=== PATIENT | female | born 1995 | race American Indian/Alaskan Native ===

== ENCOUNTER 2020-03-12 22:13 | Emergency (ER) | payer OTHER ==
[2020-03-12 23:44] VITALS: BP 106/60
[2020-03-13] MEDS ORDERED: HYDROcodone/ACETAMINOPHEN 5-325 MG TAB PO ONE (00:32)
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
[2020-03-13 01:47] LABS: Basophils # (Auto) 0.1 K/mm3 (0.0-0.1); Basophils % (Auto) 0.9 % (0.0-1.8); Eosinophils # (Auto) 0.2 K/mm3 (0.0-0.4); Eosinophils % (Auto) 1.4 % (0.0-4.3); Hematocrit 30.6 % (30.3-42.9); Hemoglobin 11.3 gm/dl (10.1-14.3); Lymphocytes # (Auto) 2.9 K/mm3 (1.2-5.4); Mean Corpuscular HGB Conc 37 % (30-34); Mean Corpuscular Volume 89 fl (79-97); Monocytes # (Auto) 0.6 K/mm3 (0.0-0.8); Platelet Count 168 K/mm3 (140-440); Red Blood Count 3.43 M/mm3 (3.65-5.03); Red Cell Distribution Width 15.3 % (13.2-15.2)
[2020-03-13 01:48] LABS: HCG Qualitative,Urine Negative (Negative)
[2020-03-13 01:50] LABS: Alanine Aminotransferase 7 units/L (7-56); Albumin 3.8 g/dL (3.9-5); Blood Urea Nitrogen 8 mg/dL (7-17); Calcium 9.1 mg/dL (8.4-10.2); Hemolysis Index 20
[2020-03-13 01:51] LABS: BUN/Creatinine Ratio 11
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
== END 2020-03-13 03:44 | disposition home or self-care (01) ==
LOC: ED 22:13
DX: M62.830 Muscle spasm of back (principal); R51 Headache; R32 Unspecified urinary incontinence; Z79.1 Long term (current) use of non-steroidal anti-inflammatories (NSAID); Z79.899 Other long term (current) drug therapy; V49.49XA Driver injured in collision with other motor vehicles in traffic accident, initial encounter; Y93.89 Activity, other specified; Y92.410 Unspecified street and highway as the place of occurrence of the external cause; Y99.8 Other external cause status
CPT/HCPCS: 36415; 74177; 80053; 81025; 85025; 99284; Q9967

== ENCOUNTER 2021-01-09 08:58 | Emergency (ER) | payer MEDICAID, OTHER ==
[2021-01-09] MEDS ORDERED: SODIUM CHLORIDE 0.9% 1000 ML 1,000 ML IV ONE ×2 (09:45→13:10)
[2021-01-09] MEDS ORDERED: ONDANSETRON 4 MG ODT TAB PO ONE (09:45)
[2021-01-09] MEDS ORDERED: MORPHINE 4 MG/1 ML INJ IV ONE ×2 (09:45→10:58)
--- NOTE | 2021-01-09 09:49 | Emergency Department Report ---
ED Abdominal Pain HPI - General Chief Complaint: Abdominal Pain Stated Complaint: ABD PAIN Time Seen by Provider: 01/09/21 09:34 Source: patient Mode of arrival: Ambulatory Limitations: No Limitations - History of Present Illness Initial Comments: Chief complaint: Abdominal pain severe HPI: This 25-year-old healthy female with history of ovarian cysts who presents with severe right lower quadrant pain tonight 10 dull aching. Pain is worse with movement. Pain radiates to the right upper quadrant. Has had poor appetite. She had diarrhea. She denies fever. No history of surgeries in the past. Last menstrual period this month. MD Complaint: abdominal pain -: Gradual, days(s) (2 to 3 days ago) Location: RUQ, RLQ Severity: severe Severity scale (0 -10): 10 Quality: aching, dull Consistency: constant Improves With: nothing Worsens With: movement Associated Symptoms: diarrhea, anorexia - Related Data Previous Rx's Medication Instructions Recorded Last Taken Type Ibuprofen [Motrin 600 MG tab] 600 mg PO Q8H PRN #30 tablet 03/13/20 Unknown Rx Tizanidine HCl 2 mg PO TID PRN #21 tablet 03/13/20 Unknown Rx HYDROcodone/APAP 5-325 [[place] 1 each PO Q6HR PRN #15 tablet 01/09/21 Unknown Rx 5/325] Ibuprofen [Motrin 400 MG tab] 400 mg PO Q8H PRN #15 tablet 01/09/21 Unknown Rx Promethazine [Phenergan] 25 mg PO Q6HR PRN #10 tab 01/09/21 Unknown Rx Allergies Allergy/AdvReac Type Severity Reaction Status Date / Time No Known Allergies Allergy Unverified 03/12/20 23:50 ED Review of Systems ROS: Stated complaint: ABD PAIN Other details as noted in HPI Comment: All other systems reviewed and negative Constitutional: denies: chills, fever, malaise Respiratory: denies: cough, shortness of breath Cardiovascular: denies: chest pain Gastrointestinal: abdominal pain, diarrhea Genitourinary: denies: urgency, dysuria, frequency, discharge, abnormal menses Musculoskeletal: denies: back pain Neurological: denies: headache ED Past Medical Hx - Past Medical History Previous Medical History?: No - Surgical History Past Surgical History?: No - Social History Smoking Status: Never Smoker Substance Use Type: None - Medications Home Medications: Home Medications Medication Instructions Recorded Confirmed Last Taken Type Ibuprofen [Motrin 600 MG tab] 600 mg PO Q8H PRN #30 tablet 03/13/20 Unknown Rx Tizanidine HCl 2 mg PO TID PRN #21 tablet 03/13/20 Unknown Rx HYDROcodone/APAP 5-325 [[place] 1 each PO Q6HR PRN #15 tablet 01/09/21 Unknown Rx 5/325] Ibuprofen [Motrin 400 MG tab] 400 mg PO Q8H PRN #15 tablet 01/09/21 Unknown Rx Promethazine [Phenergan] 25 mg PO Q6HR PRN #10 tab 01/09/21 Unknown Rx ED Physical Exam - General Limitations: No Limitations General appearance: alert, other (Appears in severe pain holding right lower abdomen) - Head Head exam: Present: atraumatic, normocephalic - Eye Eye exam: Present: normal appearance - ENT ENT exam: Present: mucous membranes moist - Neck Neck exam: Present: normal inspection, full ROM - Respiratory Respiratory exam: Present: normal lung sounds bilaterally. Absent: respiratory distress, wheezes, rales, rhonchi - Cardiovascular Cardiovascular Exam: Present: regular rate, normal rhythm, normal heart sounds. Absent: systolic murmur, diastolic murmur, rubs, gallop - GI/Abdominal GI/Abdominal exam: Present: soft, tenderness, guarding, other (+Rovsing sign, significant right lower quadrant tenderness with voluntary guarding). Absent: distended, rebound - Extremities Exam Extremities exam: Present: normal inspection - Neurological Exam Neurological exam: Present: alert, oriented X3 - Psychiatric Psychiatric exam: Present: normal affect, normal mood - Skin Skin exam: Present: warm, dry, intact, normal color. Absent: rash ED Course Vital Signs 01/09/21 01/09/21 01/09/21 09:03 09:50 09:53 Temperature 98.3 F Pulse Rate 104 H Respiratory 12 18 Rate Blood Pressure 116/63 99/54 Blood Pressure [Right] O2 Sat by Pulse 100 Oximetry 01/09/21 01/09/21 01/09/21 10:00 10:15 10:31 Temperature Pulse Rate 84 84 Respiratory 14 15 Rate Blood Pressure 93/53 93/53 92/48 Blood Pressure [Right] O2 Sat by Pulse 100 100 Oximetry 01/09/21 01/09/21 01/09/21 10:45 11:01 11:26 Temperature Pulse Rate 81 84 104 H Respiratory 18 12 16 Rate Blood Pressure 92/48 90/50 102/52 Blood Pressure [Right] O2 Sat by Pulse 100 100 100 Oximetry 01/09/21 01/09/21 01/09/21 11:31 11:45 13:35 Temperature Pulse Rate 88 76 Respiratory 15 14 Rate Blood Pressure 102/52 102/52 Blood Pressure 96/50 [Right] O2 Sat by Pulse 99 100 Oximetry ED Medical Decision Making - Lab Data Result diagrams: 01/09/21 14:19 01/09/21 09:48 Laboratory Results - last 24 hr 01/09/21 01/09/21 01/09/21 09:48 09:48 09:48 WBC 14.5 H RBC 4.15 Hgb 12.6 Hct 38.1 MCV 92 MCH 31 MCHC 33 RDW 15.8 H Plt Count 180 Lymph % (Auto) 8.6 L [place] % (Auto) 3.7 Eos % (Auto) 0.1 Baso % (Auto) 0.4 Lymph # (Auto) 1.3 [place] # (Auto) 0.5 Eos # (Auto) 0.0 Baso # (Auto) 0.1 Seg Neutrophils % 87.2 H Seg Neutrophils # 12.6 H Sodium 138 Potassium 3.8 Chloride 101.6 Carbon Dioxide 26 Anion Gap 14 BUN 7 Creatinine 0.7 Estimated GFR > 60 BUN/Creatinine Ratio 10 Glucose 86 Calcium 9.8 Total Bilirubin 0.80 AST 14 ALT 7 Alkaline Phosphatase 85 Total Protein 7.9 Albumin 4.8 Albumin/Globulin Ratio 1.5 HCG, Quant < 2 Urine Color Urine Turbidity Urine pH Ur Specific [place] Urine Protein Urine Glucose (UA) Urine Ketones Urine Blood Urine Nitrite Urine Bilirubin Urine Urobilinogen Ur Leukocyte Esterase Urine WBC (Auto) Urine RBC (Auto) U Epithel Cells (Auto) Urine Bacteria (Auto) Urine Mucus 01/09/21 01/09/21 14:19 Unknown WBC RBC Hgb 11.1 Hct 32.7 MCV MCH MCHC RDW Plt Count Lymph % (Auto) [place] % (Auto) Eos % (Auto) Baso % (Auto) Lymph # (Auto) [place] # (Auto) Eos # (Auto) Baso # (Auto) Seg Neutrophils % Seg Neutrophils # Sodium Potassium Chloride Carbon Dioxide Anion Gap BUN Creatinine Estimated GFR BUN/Creatinine Ratio Glucose Calcium Total Bilirubin AST ALT Alkaline Phosphatase Total Protein Albumin Albumin/Globulin Ratio HCG, Quant Urine Color Yellow Urine Turbidity Clear Urine pH 8.0 H Ur Specific [place] 1.006 Urine Protein <15 mg/dl Urine Glucose (UA) Neg Urine Ketones Neg Urine Blood Neg Urine Nitrite Neg Urine Bilirubin Neg Urine Urobilinogen < 2.0 Ur Leukocyte Esterase Neg Urine WBC (Auto) 1.0 Urine RBC (Auto) 2.0 U Epithel Cells (Auto) 4.0 Urine Bacteria (Auto) 4+ Urine Mucus Few - Radiology Data Radiology results: report reviewed Patient Name: ONEIL GARCIA Gender: Female Date of : 1995 Referring Provider: PRASAD DRAKE Organization: [facility] Accession Number: [id number] Requested Date: January 09, 2021 09:45 Report Status: Final Requested Procedure: 1 Procedure Description: CT abdomen pelvis w con Modality: CT Findings Reporting MD: Yusef Roberts Dictation Time: January 09, 2021 10:47 Nurses Medical Assistants Phlebotomists: Not available Process Coordinator Date: CT ABDOMEN AND PELVIS WITH CONTRAST INDICATION / CLINICAL INFORMATION: rlq pain. TECHNIQUE: Axial CT images were obtained through the abdomen and pelvis after Omnipaque 300, 90 cc IV contrast. All CT scans at this location are performed using CT dose reduction for ALARA by means of automated exposure control. COMPARISON: None available. FINDINGS: LOWER CHEST: No significant abnormality. LIVER: No significant abnormality. GALLBLADDER: No significant abnormality. BILE DUCTS: No significant abnormality. PANCREAS: No significant abnormality. SPLEEN: No significant abnormality. ADRENALS: No significant abnormality. RIGHT KIDNEY / URETER: No significant abnormality. LEFT KIDNEY / URETER: No significant abnormality. STOMACH / SMALL BOWEL: No significant abnormality. COLON: No significant abnormality. APPENDIX: Nonvisualized. PERITONEUM: No free fluid. No free air. No fluid collection. LYMPH NODES: No significant adenopathy. VASCULAR STRUCTURES: No significant abnormality. URINARY BLADDER: No significant abnormality. REPRODUCTIVE ORGANS: 3.2 cm cyst right ovary with adjacent fluid. ADDITIONAL FINDINGS: None. SKELETAL SYSTEM: No significant abnormality. IMPRESSION: 1. Suspect partially ruptured right ovarian cyst. 2. Appendix not identified. Signer Name: Yusef Roberts MD Signed: 01/09/2021 10:47 AM Workstation Name: [id number] - Medical Decision Making Hemorrhagic ovarian cyst causing severe right lower quadrant abdominal pain. Although appendix is not visualized there is no surrounding inflammatory changes to suggest appendicitis. I offered patient hospital admission for severe intractable pain. Patient declined. She was given return precautions including worsening or migrating pain, fever, vomiting. Patient prescribed ibuprofen [place] promethazine. Referred to the production support manager on-call. Repeat H&H obtained to rule out significant hemorrhage. Critical Care Time: Yes Critical care time in (mins) excluding proc time.: 40 Critical care attestation.: If time is entered above; I have spent that time in minutes in the direct care of this critically ill patient, excluding procedure time. ED Disposition Clinical Impression: Hemorrhagic cyst of right ovary, Acute right lower quadrant pain Disposition: TO HOME OR SELFCARE Is pt being admited?: No Does the pt Need Aspirin: No Condition: Stable Instructions: Abdominal Pain (ED), Ovarian Cyst, [id number] Prescriptions: Ibuprofen [Motrin 400 MG tab] 400 mg PO Q8H PRN #15 tablet PRN Reason: Pain , Severe (7-10) HYDROcodone/APAP 5-325 [[place] 5/325] 1 each PO Q6HR PRN #15 tablet PRN Reason: Pain Promethazine [Phenergan] 25 mg PO Q6HR PRN #10 tab PRN Reason: Nausea Referrals: HEIDI ASHER MD [Staff Physician] - 3-5 Days
[2021-01-09 10:11] LABS: Basophils # (Auto) 0.1 K/mm3 (0.0-0.1); Basophils % (Auto) 0.4 % (0.0-1.8); Eosinophils % (Auto) 0.1 % (0.0-4.3); Hematocrit 38.1 % (30.3-42.9); Hemoglobin 12.6 gm/dl (10.1-14.3); Lymphocytes # (Auto) 1.3 K/mm3 (1.2-5.4); Lymphocytes % (Auto) 8.6 % (13.4-35.0); Mean Corpuscular HGB Conc 33 % (30-34); Mean Corpuscular Volume 92 fl (79-97); Monocytes # (Auto) 0.5 K/mm3 (0.0-0.8); Monocytes % (Auto) 3.7 % (0.0-7.3); Platelet Count 180 K/mm3 (140-440); Red Blood Count 4.15 M/mm3 (3.65-5.03); Red Cell Distribution Width 15.8 % (13.2-15.2)
[2021-01-09 10:37] LABS: Alanine Aminotransferase 7 units/L (7-56); Albumin 4.8 g/dL (3.9-5); Blood Urea Nitrogen 7 mg/dL (7-17); Calcium 9.8 mg/dL (8.4-10.2); Hemolysis Index 2
[2021-01-09 10:38] LABS: BUN/Creatinine Ratio 10
--- NOTE | 2021-01-09 11:52 | Cat Scan Report ---
CT ABDOMEN AND PELVIS WITH CONTRAST INDICATION / CLINICAL INFORMATION: rlq pain. TECHNIQUE: Axial CT images were obtained through the abdomen and pelvis after Omnipaque 300, 90 cc IV contrast. All CT scans at this location are performed using CT dose reduction for ALARA by means of automated exposure control. COMPARISON: None available. FINDINGS: LOWER CHEST: No significant abnormality. LIVER: No significant abnormality. GALLBLADDER: No significant abnormality. BILE DUCTS: No significant abnormality. PANCREAS: No significant abnormality. SPLEEN: No significant abnormality. ADRENALS: No significant abnormality. RIGHT KIDNEY / URETER: No significant abnormality. LEFT KIDNEY / URETER: No significant abnormality. STOMACH / SMALL BOWEL: No significant abnormality. COLON: No significant abnormality. APPENDIX: Nonvisualized. PERITONEUM: No free fluid. No free air. No fluid collection. LYMPH NODES: No significant adenopathy. VASCULAR STRUCTURES: No significant abnormality. URINARY BLADDER: No significant abnormality. REPRODUCTIVE ORGANS: 3.2 cm cyst right ovary with adjacent fluid. ADDITIONAL FINDINGS: None. SKELETAL SYSTEM: No significant abnormality. IMPRESSION: 1. Suspect partially ruptured right ovarian cyst. 2. Appendix not identified. Signer Name: Yusef Roberts MD Signed: 01/09/2021 11:47 AM Workstation Name: [id number]
[2021-01-09 12:04] LABS: Bacteria,Urine 4+ /HPF (Negative); Bilirubin,Urine NEG (Negative); Blood,Urine NEG (Negative); Color,Urine Yellow (Yellow); Mucus,Urine FEW /HPF; Protein,Urine <15 mg/dL mg/dL (Negative); Urobilinogen,Urine < 2.0 mg/dL (<2.0)
[2021-01-09] MEDS ORDERED: KETOROLAC 30 MG/1 ML INJ IV ONE (13:09)
[2021-01-09] MEDS ORDERED: HYDROcodone/ACETAMINOPHEN 5-325 MG TAB PO ONE (13:12)
--- NOTE | 2021-01-09 14:41 | Ultrasound Report ---
ULTRASOUND PELVIS INDICATION / CLINICAL INFORMATION: abdominal pain ovarian cyst. TECHNIQUE: Transabdominal. Duplex Color Doppler used: Yes. COMPARISON: CT from 01/09/2021 FINDINGS: UTERUS: The uterus measures 8.9 cm. The uterus demonstrates a normal sonographic appearance. The end ometrial stripe measures 0.4 cm. RIGHT ADNEXA: Right ovary measures up to 5.1 cm. There is a 3.5 cm complex cystic structure, containi ng fluid/fluid level and focal soft tissue debris. Tubular cystic region in the right adnexa likely r eflects hydrosalpinx. Normal right ovarian Doppler flow. LEFT ADNEXA: No significant ovarian cyst or mass. Normal color Doppler blood flow. URINARY BLADDER: No significant abnormality. FREE FLUID: None. ADDITIONAL FINDINGS: None. IMPRESSION: 1. 3.5 cm complex cystic lesion within the right ovary. This most likely reflects a hemorrhagic cyst. Consider follow-up pelvic ultrasound in 6 weeks to assess resolution. 2. Right sided hydrosalpinx. 3. Otherwise, no significant abnormality. Signer Name: Jose Alejandro Doran MD Signed: 01/09/2021 2:37 PM Workstation Name: [id number]
[2021-01-09 14:46] LABS: Hematocrit 32.7 % (30.3-42.9); Hemoglobin 11.1 gm/dl (10.1-14.3)
[2021-01-09 16:19] VITALS: BP 92/54
== END 2021-01-09 16:19 | disposition home or self-care (01) ==
LOC: ED 08:58
DX: N83.201 Unspecified ovarian cyst, right side (principal); R10.31 Right lower quadrant pain; Z79.1 Long term (current) use of non-steroidal anti-inflammatories (NSAID); Z79.899 Other long term (current) drug therapy
CPT/HCPCS: 36415; 74177; 76856; 80053; 81001; 84702; 85014; 85018; 85025; 96361; 96374; 96375; 96376; 99284; J1885; J2270; J7030; Q9967; Q0162